=== PATIENT | male | born 2000 | race Caucasian/White ===

== ENCOUNTER 2019-03-03 21:13 | Emergency (ER) | payer OTHER ==
[~2019-03-03] VITALS: Ht 172.7 cm; Wt 76.4 kg
[~2019-03-03 21:13] MED LIST: CEPH-443 PO; IBUP-1542 PO; PENI500T PO
[2019-03-03 21:28] VITALS: Ht 172.7 cm; Wt 76.4 kg
[2019-03-04] MEDS ORDERED: KETOROLAC 60 MG INJ IM STA (00:17)
[2019-03-04 01:38] VITALS: BP 122/82; PULSE 91; RESP 16
== END 2019-03-04 01:41 | disposition home or self-care (01) ==
LOC: EDUNIT# 21:13 → E/R 21:13 → FTE 03-04 01:41
DX: J02.9 Acute pharyngitis, unspecified (principal)
CPT/HCPCS: 87880; 96372; J1885; Z7502